=== PATIENT | female | born 1980 | race Two or more races ===

== ENCOUNTER → 2024-11-20 | Outpatient (CLI) | payer BC, SELFPAY ==
--- NOTE | 2024-11-20 10:45 | XR_ITS ---
Examination: Screening digital mammography, bilateral Computer aided detection 3-D breast Tomosynthesis, bilateral Date and time of exam: November 20, 2024 1049 hours Compared to mammograms dating to January 28, 2021 Indication: Screening Technique: Nonmagnified MLO, CC views of the breasts to been obtained, reconstructed from 3-D Tomosynthesis images. R2 computer aided detection program utilized for evaluation of suspicious masses and/or abnormal calcifications. 3-D Tomosynthesis images obtained. Findings: The breasts are heterogeneously dense, which may obscure small masses 27 mm circumscribed nodule retroareolar region left breast, corresponding to retroareolar cyst described on left breast sonogram September 25, 2023 Benign calcifications No interval suspicious masses Impression: BI-RADS category II: Benign Findings. Recommend 1 year follow-up mammogram.
== END | disposition home or self-care (01) ==
PROVIDERS: PCP Physician Assistant; Referring Provider Physician Assistant; Visit Provider Physician Assistant
DX: Z12.39 Encounter for other screening for malignant neoplasm of breast (principal); N63.42 Unspecified lump in left breast, subareolar; R92.1 Mammographic calcification found on diagnostic imaging of breast
CPT/HCPCS: 77063; 77067

== ENCOUNTER → 2025-04-16 | Outpatient (CLI) | payer BC, SELFPAY ==
--- NOTE | 2025-04-16 14:30 | XR_ITS ---
EXAMINATION: Ultrasound soft tissue extremity left inner upper arm TECHNIQUE: Grayscale sonographic images soft tissue inner upper arm INDICATIONS: control device implanted in the soft tissue, preop for removal Date and time: April 16, 2025, 1436 hours FINDINGS: Echogenic structure consistent with the Nexplanon identified in the soft tissue as an echogenic structure IMPRESSION: Successful identification of the -control implant device in the soft tissue inner upper arm
== END | disposition home or self-care (01) ==
PROVIDERS: PCP Physician Assistant; Referring Provider Physician Assistant; Visit Provider Physician Assistant
DX: Z30.46 Encounter for surveillance of implantable subdermal contraceptive (principal)
CPT/HCPCS: 76882